=== PATIENT | male | born 1960 | race Caucasian/White ===

== ENCOUNTER 2020-12-06 06:00 | Day surgery (SDC) | payer OTHER ==
[2020-12-05 15:12] VITALS: BMI 28.1
[2020-12-06 09:34] VITALS: TEMP 97.7
[2020-12-06 10:21] VITALS: BP 119/72; PULSE 60
== END 2020-12-06 10:50 | disposition home or self-care (01) ==
LOC: JASU-ENDO 06:00
PROVIDERS: ATTEND Internal Medicine Gastroenterology
PROC: 0DBH8ZX Excision of Cecum, Via Natural or Artificial Opening Endoscopic, Diagnostic (ICD-10-PCS; principal; 2020-12-06 08:45)
DX: D12.0 Benign neoplasm of cecum (principal); Z12.11 Encounter for screening for malignant neoplasm of colon
CPT/HCPCS: 88305-TC